=== PATIENT | female | born 1995 | race Two or more races ===

== ENCOUNTER 2018-07-26 14:44 | Emergency (ER) | payer SELFPAY ==
--- NOTE | 2018-07-26 15:12 | EDPHY ---
HPI/HX/ROS/PE/MDM Narrative: CHIEF COMPLAINT: Chest pain HISTORY OF PRESENT ILLNESS: This patient is a healthy 23 year old female. Yesterday morning she had a sharp , stabbing chest pain with associated pressure in her sternal area. This morning her symptoms recurred, and then became particularly severe about two hours ago. She endorses a squeezing pressure in her sternal area, radiating up towards her clavicles and through to her back and towards both her shoulders. This is worse with deep inspiration. She endorses associated tachycardia, anxiety, and sweaty palms. These sensations are intermittent. No nausea or vomiting. Denies any stomach pain. She had similar discomfort two months ago and two weeks ago, but this resolved quickly. She denies any association with eating. She denies personal history of GERD. She does endorse family history of cholelithiasis. Denies personal or family history of clotting disorders. No swelling or pain in her calves. She does endorse some urinary urgency. She does not take any daily medications, but is on the Depo shot for control. She denies fever, chills, vomiting, diarrhea, urinary complaints, headache, lightheadedness. REVIEW OF SYSTEMS: A comprehensive 10 system review of systems is otherwise negative aside from elements mentioned in the history of present illness and medical decision making. PAST MEDICAL HISTORY: . SOCIAL HISTORY: Employed. Nonsmoker. No alcohol or illicit drug use. VITAL SIGNS: Reviewed by me GENERAL: Well-developed, well-nourished, resting comfortably in no respiratory distress. HEENT: Atraumatic. Eyes: No icterus, no injection. Mouth: moist mucous membranes. No erythema or lesions. Neck: supple with no adenopathy. LUNGS: DIminished breath sounds on the right. CARDIAC: Regular rate and rhythm, no rubs, murmurs or gallops. ABDOMEN: Mild epigastric tenderness to palpation. No right upper quadrant tenderness. Soft, nondistended, bowel sounds normal. BACK: No CVA tenderness. EXTREMITIES: No trauma. No edema. Range of motion is normal throughout. NEURO: Alert and oriented, grossly nonfocal. SKIN: Warm and dry, no rash. PSYCHIATRIC: Normal mentation, no agitation. Portions of this note were transcribed by a medical affairs manager. I personally performed a history, physical exam, medical decision making, and confirmed accuracy of information the transcribed note. ED Course: 23 y/o female presents with midsternal chest pain and pressure. Plan for EKG, chest x-ray, labs including CBC, chemistries, liver, lipase, d-dimer, troponin, BHCG. Plan to administer GI cocktail for relief. Normal chest x-ray. 12-LEAD EKG: Please see the full report in [facility]. My interpretation: Normal sinus rhythm Reviewed laboratory studies. Troponin negative. BHCG negative. D-dimer elevated. Plan for CTA to rule out PE. 18:[address] Hernandez, radiologist. CTA negative for PE. Symptoms improved with GI cocktail with slight residual discomfort. Plan to administer 15mg IV ketorolac for symptom relief. Reassessed patient. Discussed imaging results. Low suspicion for cardiac etiology of symptoms given negative ED workup today, lack of risk factors. Plan to discharge home in good condition. Follow up and return precautions discussed. Discussed possibility of US of the gallbladder for further evaluation. The patient is comfortable with this plan. MDM: After history and physical examination, the differential for chest pain was considered, including but not limited to, myocardial ischemia, acute coronary syndrome, pulmonary embolus, chest wall pain, gastrointestinal causes, pleural inflammation and pulmonary infectious causes. - Data Points Imaging Results: Imaging Impressions Chest X-Ray 07/26/18 15:42 Impression: Normal. Chest/Thorax CTA 07/26/18 17:07 Impression: 1. No evidence of acute pulmonary embolism or pneumonia. 2. Upper limits normal heart size without evidence of pericardial effusion. Berna Quintanilla was notified of these findings by telephone at 6:15 PM on 07/26/2018 Imaging: Discussed imaging studies w/ cloud developer Radiologist, I viewed and interpreted images myself Laboratory Results: Laboratory Results 07/26/18 15:13 07/26/18 15:13 07/26/18 07/26/18 07/26/18 16:15 15:13 15:13 WBC RBC Hgb Hct MCV MCH MCHC RDW Plt Count MPV Neut % (Auto) Lymph % (Auto) [place] % (Auto) Eos % (Auto) Baso % (Auto) Nucleat RBC Rel Count Absolute Neuts (auto) Absolute Lymphs (auto) Absolute Monos (auto) Absolute Eos (auto) Absolute Basos (auto) Absolute Nucleated RBC Immature Gran % Immature Gran # D-Dimer Sodium 140 mEq/L mEq/L (135-145) Potassium 3.4 mEq/L L mEq/L (3.5-5.2) Chloride 110 mEq/L mEq/L (97-110) Carbon Dioxide 23 mEq/l mEq/l (22-31) Anion Gap 7 mEq/L mEq/L (6-14) BUN 12 mg/dL mg/dL (7-23) Creatinine 0.5 mg/dL L mg/dL (0.6-1.0) Estimated GFR > 60 Glucose 113 mg/dL H mg/dL (70-100) Calcium 9.0 mg/dL mg/dL (8.5-10.4) Total Bilirubin 0.3 mg/dL mg/dL (0.1-1.4) Conjugated Bilirubin 0.3 mg/dL mg/dL (0.0-0.5) Unconjugated Bilirubin 0.0 mg/dL mg/dL (0.0-1.1) AST 19 IU/L IU/L (14-46) ALT 19 IU/L IU/L (9-52) Alkaline Phosphatase 70 IU/L IU/L (38-126) POC Troponin I 0.00 ng/mL ng/mL (0.00-0.08) Total Protein 7.0 g/dL g/dL (6.3-8.2) Albumin 4.0 g/dL g/dL (3.5-5.0) Lipase 98 IU/L IU/L (23-300) Beta HCG, Qual NEGATIVE 07/26/18 07/26/18 15:13 15:13 WBC 6.85 10^3/uL 10^3/uL (3.80-9.50) RBC 3.99 10^6/uL L 10^6/uL (4.18-5.33) Hgb 11.2 g/dL L g/dL (12.6-16.3) Hct 33.6 % L % (38.0-47.0) MCV 84.2 fL fL (81.5-99.8) MCH 28.1 pg pg (27.9-34.1) MCHC 33.3 g/dL g/dL (32.4-36.7) RDW 13.0 % % (11.5-15.2) Plt Count 172 10^3/uL 10^3/uL (150-400) MPV 11.5 fL fL (8.7-11.7) Neut % (Auto) 52.2 % % (39.3-74.2) Lymph % (Auto) 38.7 % % (15.0-45.0) [place] % (Auto) 7.7 % % (4.5-13.0) Eos % (Auto) 1.2 % % (0.6-7.6) Baso % (Auto) 0.1 % L % (0.3-1.7) Nucleat RBC Rel Count 0.0 % % (0.0-0.2) Absolute Neuts (auto) 3.57 10^3/uL 10^3/uL (1.70-6.50) Absolute Lymphs (auto) 2.65 10^3/uL 10^3/uL (1.00-3.00) Absolute Monos (auto) 0.53 10^3/uL 10^3/uL (0.30-0.80) Absolute Eos (auto) 0.08 10^3/uL 10^3/uL (0.03-0.40) Absolute Basos (auto) 0.01 10^3/uL L 10^3/uL (0.02-0.10) Absolute Nucleated RBC 0.00 10^3/uL 10^3/uL (0-0.01) Immature Gran % 0.1 % % (0.0-1.1) Immature Gran # 0.01 10^3/uL 10^3/uL (0.00-0.10) D-Dimer 0.54 ug/mLFEU H ug/mLFEU (0.00-0.50) Sodium Potassium Chloride Carbon Dioxide Anion Gap BUN Creatinine Estimated GFR Glucose Calcium Total Bilirubin Conjugated Bilirubin Unconjugated Bilirubin AST ALT Alkaline Phosphatase POC Troponin I Total Protein Albumin Lipase Beta HCG, Qual Medications Given: Discontinued Medications Al Hydroxide/Mg Hydroxide (Maalox Susp) 30 ml PO ONCE ONE Stop: 07/26/18 15:43 Last Admin: 07/26/18 15:56 Dose: 30 ml Hyoscyamine Sulfate (Levsin, Hyomax-Sl) 0.25 mg PO ONCE ONE Stop: 07/26/18 15:43 Last Admin: 07/26/18 15:56 Dose: 0.25 mg Sodium Chloride (Ns) 500 mls @ 0 mls/hr IV EDNOW ONE; Wide Open PRN Reason: Protocol Stop: 07/26/18 15:43 Last Admin: 07/26/18 15:55 Dose: 500 mls Ketorolac Tromethamine (Toradol) 15 mg IVP EDNOW ONE Stop: 07/26/18 18:46 Last Admin: 07/26/18 18:51 Dose: 15 mg Lidocaine (Lidocaine 2% Viscous) 15 ml PO ONCE ONE Stop: 07/26/18 15:43 Last Admin: 07/26/18 15:56 Dose: 15 ml Pantoprazole Sodium (Protonix) 40 mg PO EDNOW ONE Stop: 07/26/18 16:10 Last Admin: 07/26/18 16:16 Dose: 40 mg Point of Care Test Results: Chemistry 07/26/18 16:15 POC Troponin I 0.00 ng/mL ng/mL (0.00-0.08) General Time Seen by Provider: 07/26/18 15:00 Initial Vital Signs: Initial Vital Signs Temperature (C) 36.8 C 07/26/18 14:50 Heart Rate 85 07/26/18 14:50 Respiratory Rate 18 07/26/18 14:50 Blood Pressure 107/64 07/26/18 14:50 O2 Sat (%) 99 07/26/18 14:50 O2 Delivery Mode Room Air Allergies/Adverse Reactions: No Known Allergies Allergy (Verified 07/26/18 14:49) Home Medications: Medication Instructions Recorded Vitamin-Like Med 08/02/09 Departure - Departure Disposition: Home, Routine, Self-Care Clinical Impression: Epigastric pain Chest pain Qualifiers: Chest pain type: other chest pain Qualified Code(s): R07.89 - Other chest pain Condition: Good Instructions: Chest Pain (ED), Epigastric Pain (ED) Additional Instructions: Follow up with your primary care provider. You may wish to get an ultrasound of your gallbladder as we discussed. Take omeprazole, available over the counter, as directed on the packaging for at least one week to see if this helps to relieve your symptos. Return to the emergency department for increased chest pain, difficulty breathing, fever, or other worsening of condition. Referrals: Tonja Sun MD [Medical Doctor] - As per Instructions Report Scribed for: Berna Quintanilla Report Scribed by: Bianca Boles of Report: 07/26/18 Time of Report: 16:07
[2018-07-26] MEDS ORDERED: MAG HYDROX/AL HYDROX/SIMETH 30 ML UDCUP PO ONE (15:42)
[2018-07-26] MEDS ORDERED: NS 500 ML IV ONE (15:42)
[2018-07-26] MEDS ORDERED: HYOSCYAMINE SULFATE 0.125 MG TAB PO ONE (15:42)
[2018-07-26] MEDS ORDERED: LIDOCAINE 2% VISCOUS 15 ML UDCUP PO ONE (15:42)
[2018-07-26 15:50] LABS: PLATELET COUNT 172 10^3/uL (150-400)
[2018-07-26] MEDS ORDERED: PANTOPRAZOLE SODIUM 40 MG TAB PO ONE (16:09)
[2018-07-26] MEDS ORDERED: IOHEXOL 350mgI/ML (OMNIPAQUE) 150 ML BTL IV ONE (17:32)
[2018-07-26] MEDS ORDERED: KETOROLAC 15 MG/1 ML SDV IVP ONE (18:45)
[2018-07-26 19:18] VITALS: BP 113/71
--- NOTE | 2018-07-26 23:23 | CPEKG ---
Test Reason : OPEN Blood Pressure : / mmHG Vent. Rate : 078 BPM Atrial Rate : 078 BPM P-R Int : 169 ms QRS Dur : 095 ms QT Int : 367 ms P-R-T Axes : 069 075 058 degrees QTc Int : 419 ms Sinus rhythm Confirmed by Berna Quintanilla ([id number]) on 07/26/2018 11:22:29 PM Referred By: Berna Quintanilla Confirmed By:Berna Quintanilla
== END 2018-07-26 19:18 | disposition home or self-care (01) ==
DX: R07.89 Other chest pain (principal); R10.13 Epigastric pain
CPT/HCPCS: 84484-ER; 96374; J1885; Q9967